=== PATIENT | female | born 1950 | race Caucasian/White ===

== ENCOUNTER 2021-02-01 07:30 | Outpatient (CLI) | payer MEDICARE, BC | END 2021-02-01 07:31 | disposition home or self-care (01) | LOC: CSHCT 07:30 | PROVIDERS: ATTEND Family Medicine | DX: R22.1 Localized swelling, mass and lump, neck (principal); E04.9 Nontoxic goiter, unspecified; R91.8 Other nonspecific abnormal finding of lung field | CPT/HCPCS: 70491; 82565 ==

== ENCOUNTER 2021-02-10 15:35 | Outpatient (CLI) | payer MEDICARE, BC | END 2021-02-10 15:36 | disposition home or self-care (01) | LOC: CSHULT 15:35 | PROVIDERS: ATTEND Otolaryngology Otolaryngic Allergy | DX: E04.9 Nontoxic goiter, unspecified (principal); E04.2 Nontoxic multinodular goiter | CPT/HCPCS: 76536 ==

== ENCOUNTER 2021-03-03 13:14 | Outpatient (CLI) | payer MEDICARE, BC | END 2021-03-03 13:15 | disposition home or self-care (01) | LOC: CSHRAD 13:14 | PROVIDERS: ATTEND Urology | DX: N39.0 Urinary tract infection, site not specified (principal); N20.0 Calculus of kidney | CPT/HCPCS: 74018 ==

== ENCOUNTER 2021-12-20 10:06 | Outpatient (CLI) | payer MEDICARE, BC | END 2021-12-20 10:07 | disposition home or self-care (01) | LOC: CSHMAMMO 10:06 | PROVIDERS: ATTEND Family Medicine | DX: Z12.31 Encounter for screening mammogram for malignant neoplasm of breast (principal); Z80.3 Family history of malignant neoplasm of breast | CPT/HCPCS: 77063; 77067 ==

== ENCOUNTER 2023-09-20 14:54 | Emergency (ER) | payer MEDICARE ==
[2023-09-20] MEDS ORDERED: Lidocaine 1% (PF) 30 ML VIAL ONE (15:40)
[2023-09-20] MEDS ORDERED: Boostrix 0.5 ML (Tdap) VIAL (>/=7 yrs of age) ONE (15:40)
[2023-09-20] MEDS ORDERED: Lidocaine 1% w/Epinephrine 1:200K 30 ML VIAL ONE (15:42)
== END 2023-09-20 16:49 | disposition home or self-care (01) ==
LOC: CSHERS 14:54
DX: S81.812A Laceration without foreign body, left lower leg, initial encounter (principal); I10 Essential (primary) hypertension; E11.9 Type 2 diabetes mellitus without complications; Z23 Encounter for immunization; W26.8XXA Contact with other sharp object(s), not elsewhere classified, initial encounter
CPT/HCPCS: 12002; 90471; 90715; J2001

== ENCOUNTER 2023-12-19 12:10 | Outpatient (CLI) | payer MEDICARE | END 2023-12-19 12:11 | disposition home or self-care (01) | LOC: CSHRAD 12:10 | PROVIDERS: ATTEND Internal Medicine Hematology & Oncology | DX: Z01.818 Encounter for other preprocedural examination (principal) | CPT/HCPCS: 93005; 93010 ==